=== PATIENT | male | born 1980 | race Caucasian/White ===

== ENCOUNTER 2017-03-08 10:42 | Day surgery (SDC) | payer BC ==
[~2017-03-08] VITALS: Ht 172.7 cm; Wt 198.5 kg
[2017-03-08] MEDS ORDERED: ZANTAC 7575 MG PO (11:31)
[2017-03-08] MEDS ORDERED: TYLENOL 8 HR PO (11:31)
[2017-03-08] MEDS ORDERED: ZYRTEC 10MG10 MG PO (11:32)
[2017-03-08] MEDS ORDERED: FLONASE NASAL S16 GM NS (11:32)
[2017-03-08] MEDS ORDERED: ZESTRIL 10MG10 MG PO (11:32)
[2017-03-08 11:52] VITALS: BP 147/83; PULSE 78; TEMP 97.5
[2017-03-08 12:09] LABS: CALCIUM 9.5 mg/dL (8.4-10.2); CREATININE, serum 0.68 mg/dL (0.66-1.25); POTASSIUM 3.8 mmol/L (3.4-5.0)
[2017-03-08 14:30] VITALS: BP 132/71; PULSE 74; TEMP 97.9
[2017-03-08 14:45] VITALS: BP 139/81; PULSE 81
[2017-03-08 15:00] VITALS: BP 132/68; PULSE 81
[2017-03-08 16:04] VITALS: BP 142/85; PULSE 67; TEMP 98.4
== END 2017-03-08 15:35 | disposition home or self-care (01) ==
LOC: SDCO 10:42
PROVIDERS: Nurse Anesthetist, Certified Registered
DX: N35.9 Urethral stricture, unspecified (principal); R31.21 Asymptomatic microscopic hematuria; G47.33 Obstructive sleep apnea (adult) (pediatric); I10 Essential (primary) hypertension; K21.9 Gastro-esophageal reflux disease without esophagitis; Z88.0 Allergy status to penicillin; Z88.1 Allergy status to other antibiotic agents; Z68.44 Body mass index [BMI] 60.0-69.9, adult
CPT/HCPCS: J1100; J1170; J2405; J2704; J3010; J7120